=== PATIENT | male | born 1960 | race African-American/Black ===

== ENCOUNTER 2021-05-24 01:20 | Emergency (ER) | payer OTHER, SELFPAY ==
[2021-05-24] VITALS (36 sets, daily range): BP systolic 150–232; BP diastolic 72–105; PULSE 56–93; RESP 11–29; TEMP 36.8; O2SAT 93–99
--- NOTE | ~2021-05-24 | CT_ITS ---
EXAMINATION: CT brain wo con DATE: 05/24/2021 02:20 INDICATION: Hypertension, headache and dizziness TECHNIQUE: Computed tomography (CT) of the head was performed without intravenous contrast. Sagittal and coronal reconstructions were performed. The mA was adjusted according to patient size. Iterative reconstruction technique was employed. The dose-length product was 681.00 mGy-cm. COMPARISON: None FINDINGS: No acute intracranial hemorrhage, acute infarction or abnormal extra axial fluid collection. Ventricl es are normal and symmetric. No mass/mass effect. Mild mucosal thickening throughout the paranasal si nuses with mucous retention cyst in the right maxillary sinus. The orbits and mastoid air cells are n ormal. IMPRESSION: 1. No acute intracranial process. Reviewed, dictated and finalized at location A. ERNMAKER
--- NOTE | ~2021-05-24 | XR_ITS ---
EXAMINATION: XR chest 2V DATE: 05/24/2021 02:03 INDICATION: Postprandial nausea and vomiting TECHNIQUE: frontal and lateral views of the chest were obtained. COMPARISON: None FINDINGS: Eventration along the right hemidiaphragm with slight elevation of the left hemidiaphragm. Calcified nodules in the right midlung zone consistent with old granulomatous disease. No other airspace opacit ies, pulmonary edema, pleural effusion or pneumothorax. The cardiomediastinal silhouette is normal. M inimal thoracic spondylosis. IMPRESSION: 1. No acute cardiopulmonary disease. Reviewed, dictated and finalized at location A. ICAL LABORATORY MEDICAL DIRECTOR
--- NOTE | 2021-05-24 01:50 | ECG_ITS ---
Measurements Intervals [place] Rate: 62 P: 73 NE: 151 QRS: -9 QRSD: 93 T: 197 QT: 455 QTc: 463 Interpretive Statements SINUS RHYTHM POSSIBLE LEFT ATRIAL ENLARGEMENT INCOMPLETE RIGHT BUNDLE BRANCH BLOCK ST-T WAVE ABNORMALITY IN ANTEROLAT/HIGH LAT LEADS- CONSIDER ISCHEMIA BASELINE ARTIFACT- I, III, AVR, AVL, V1 ABNORMAL ECG Electronically Signed On 05-24-2021 6:15:17 ADMINISTRATIVE MEDICAL DIRECTOR by Sreedhar Monet D.O.
[2021-05-24] MEDS: ONDANSETRON INJ 4 MG/2 ML VIAL IV PUSH (02:52)
[2021-05-24] MEDS: lisinopriL 20 MG TABLET 40 MG PO (02:52)
[2021-05-24] MEDS: lisinopriL 10 MG TABLET PO (02:53)
[2021-05-24 03:14] LABS: Basophils Absolute Auto 0.1 K/mm3 (0.0-0.1); Basophils Percent Auto 0.5 % (0.2-1.2); Eosinophils Percent Auto 0.2 % (0-4.4); Hematocrit 39.3 % (42.0-52.0); Hemoglobin 12.9 g/dL (14.0-18.0); Immature Granulocyte Absolute 0.05 K/mm3 (0.00-0.031); Immature Granulocyte Percent A 0.4 % (0-0.5); Lymphocytes Absolute Auto 1.45 K/mm3 (0.9-3.2); Lymphocytes Percent Auto 11.2 % (18.3-44.2); Mean Corpuscular HGB Conc 32.8 g/dl (32-36); Mean Corpuscular Hemoglobin 26.5 pg (26-34); Mean Corpuscular Volume 80.9 fl (80-100); Monocytes Absolute Auto 0.7 K/mm3 (0.1-0.6); Neutrophils Absolute Auto 10.7 K/mm3 (1.3-6.7); Neutrophils Percent Auto 82.7 % (45.5-73.1); Platelet Count Result 224 k/mm3 (150-375); Red Blood Count 4.86 M/mm3 (4.6-6.20); Red Cell Distribution Width 15.8 % (11.5-14.5)
[2021-05-24 03:17] LABS: Add Urine Microscopic? NO; Appearance Urine Clear (Clear); Bilirubin Urine Negative (Negative); Blood Urine Negative (Negative); Color Urine Straw (Yellow); Glucose Urine UA Negative (Negative); Ketones Urine Negative (Negative); Leukocyte Esterase Ur Negative LEU/UL (Negative); Nitrate Urine Negative (Negative); Protein Urine Negative (Negative); Specific Grav Ur 1.014 (1.001-1.035); Urobilinogen Urine Negative mg/dL (<2.0)
--- NOTE | 2021-05-24 03:29 | ED.GENADULT ---
HPI - General Adult General Chief complaint: Nausea/Vomiting/Diarrhea Stated complaint: N/V DOUBLE VISION SINCE 2229 AFTER EATING CONCESSI Time Seen by Provider: 05/24/21 01:31 History of Present Illness HPI narrative: 61-year-old male presents emerged department for evaluation of nausea and vomiting along with elevated blood pressure. Patient states that after eating lunch at work he had onset of nausea and vomiting. Patient states after the onset of nausea and vomiting he did have some blurred vision. Patient presented emerge department and was found to have an elevated blood pressure. Patient states he has not been taking his blood pressure medications for the last 3 to 4 months due to other life stresses. Patient denies any chest pain or shortness of breath. Patient's nausea was improved with Zofran in route. Patient does complain of mild headache. Patient states that his double vision is intermittent but declines any double vision at this time. Related Data Allergies Allergy/AdvReac Type Severity Reaction Status Date / Time No Known Allergies Allergy Verified 05/24/21 02:51 Review of Systems Review of Systems: CONSTITUTIONAL: Denies fever, chills, or sweats. EYES: Denies visual changes, redness, or discharge. ENT: Denies rhinorrhea, congestion, sore throat, or otalgia. CARDIOVASCULAR: Denies chest pain, palpitations, or edema. RESPIRATORY: Denies cough or dyspnea. GASTROINTESTINAL: Denies abdominal pain but did have nausea and vomiting prior to arrival. GENITOURINARY: Denies dysuria or hematuria. SKIN: Denies rash or itching. MUSCULOSKELETAL: Denies back pain, joint pain, or myalgia. NEUROLOGIC: Head pressure and intermittent double vision. PSYCHIATRIC: Denies anxiety or depression. Exam Narrative: APPEARANCE: Well appearing, no pain, no distress, well-nourished. HEAD: normocephalic, atraumatic. EYES: PERRLA/EOMI, conjunctivae clear. Normal visual sanders NOSE: Normal no drainage RESPIRATORY: Airway patent, respirations nonlabored. Clear to auscultation bilaterally, no rales, rhonchi, wheezing. CARDIOVASCULAR: Regular rate and rhythm without murmurs rubs or gallops. ABDOMINAL: Soft, nontender, nondistended, normal bowel sounds MUSCULOSKELETAL: Moves all extremities. Strength/ROM intact, No edema, No calf tenderness. NEURO: Alert. Cranial nerves II through XII intact. Good coordination SKIN: Warm, dry. Normal Color Course Course Emergency Course: Patient was restarted on his lisinopril. Patient was also given a dose of hydralazine in the emergency department to help with his blood pressures. Patient's work-up was negative for end organ damage. Patient's troponin was negative. Patient's head CT was negative. No evidence of STEMI on EKG. Patient had no protein in his urine. Patient felt that his nausea was improved and had no further emesis emergency room. Patient states that his double vision was resolved. Patient denied any headache at time of discharge from the emerge department. Vital Signs Vital signs: Vital Signs Temperature 98.2 F 05/24/21 01:33 Pulse Rate 59 L 05/24/21 01:33 Respiratory Rate 15 05/24/21 01:33 Blood Pressure 201/79 H 05/24/21 01:33 Pulse Oximetry 98 05/24/21 01:33 Temperature 98.2 F 05/24/21 01:33 Pulse Rate 72 05/24/21 04:16 Respiratory Rate 16 05/24/21 04:16 Blood Pressure 201/102 H 05/24/21 04:16 Pulse Oximetry 98 05/24/21 01:33 Medical Decision Making Vital Signs Vital Signs: Vital Signs Temperature 98.2 F 05/24/21 01:33 Pulse Rate 59 L 05/24/21 01:33 Respiratory Rate 15 05/24/21 01:33 Blood Pressure 201/79 H 05/24/21 01:33 Pulse Oximetry 98 05/24/21 01:33 Temperature 98.2 F 05/24/21 01:33 Pulse Rate 72 05/24/21 04:16 Respiratory Rate 16 05/24/21 04:16 Blood Pressure 201/102 H 05/24/21 04:16 Pulse Oximetry 98 05/24/21 01:33 Lab Data Lab results reviewed: Yes I reviewed the patient's lab results. Result jovany
[2021-05-24 03:32] LABS: Alanine Aminotransferase 21 U/L (4-50); Albumin Level 3.9 g/dL (3.5-5.1); Alkaline Phosphatase 74 U/L (38-126); Anion Gap 5 mmol/L (8-16); Aspartate Amino Transferase 24 U/L (17-59); Bilirubin,Total 0.3 mg/dL (0.2-1.3); Blood Urea Nitrogen 15 mg/dL (9-20); Calcium 8.2 mg/dL (8.4-10.2); Carbon Dioxide 25 mmol/L (22-30); Chloride 110 mmol/L (98-107); Estimated CRCL calculation 63 ml/min; Estimated Glomerular Filt Rate > 60; Glucose 130 mg/dL (65-110); Lipase 78 U/L (23-300); Potassium 3.5 mmol/L (3.4-5.0); Sodium 140 mmol/L (137-145)
[2021-05-24 03:35] LABS: Troponin I < 0.012 ng/mL (0.000-0.034)
[2021-05-24] MEDS: hydrALAZINE HCL 20 MG/ML VIAL 10 MG IV PUSH (04:22)
== END 2021-05-24 07:16 | disposition home or self-care (01) ==
PROVIDERS: Emergency Provider Emergency Medicine
DX: I10 Essential (primary) hypertension (principal); R51.9 Headache, unspecified; I45.10 Unspecified right bundle-branch block; R94.31 Abnormal electrocardiogram [ECG] [EKG]
CPT/HCPCS: 36415; 70450; 71046; 80053; 81003; 83690; 84484; 85025; 93005; 96374; 96375; 99284; A9270; J0360; J2405